=== PATIENT | male | born 1950 | race Caucasian/White ===

== ENCOUNTER 2020-10-29 08:45 | Outpatient (CLI) | payer MEDICARE, MEDICAID | END 2020-10-29 08:46 | disposition home or self-care (01) | LOC: CSHWCC 08:45 | PROVIDERS: ATTEND Nurse Practitioner Family | DX: S51.802D Unspecified open wound of left forearm, subsequent encounter (principal); E11.621 Type 2 diabetes mellitus with foot ulcer; L97.429 Non-pressure chronic ulcer of left heel and midfoot with unspecified severity; L97.519 Non-pressure chronic ulcer of other part of right foot with unspecified severity; R60.0 Localized edema; E11.40 Type 2 diabetes mellitus with diabetic neuropathy, unspecified; E11.65 Type 2 diabetes mellitus with hyperglycemia; I10 Essential (primary) hypertension; I87.2 Venous insufficiency (chronic) (peripheral); J44.9 Chronic obstructive pulmonary disease, unspecified; L20.89 Other atopic dermatitis | CPT/HCPCS: 11042; 99203; G0463 ==

== ENCOUNTER 2020-11-12 09:34 | Outpatient (CLI) | payer MEDICARE, MEDICAID | END 2020-11-12 09:35 | disposition home or self-care (01) | LOC: CSHWCC 09:34 | PROVIDERS: ATTEND Nurse Practitioner Family | DX: I87.2 Venous insufficiency (chronic) (peripheral) (principal); E11.621 Type 2 diabetes mellitus with foot ulcer; L97.429 Non-pressure chronic ulcer of left heel and midfoot with unspecified severity; L97.519 Non-pressure chronic ulcer of other part of right foot with unspecified severity; S81.802D Unspecified open wound, left lower leg, subsequent encounter; R60.0 Localized edema; E11.40 Type 2 diabetes mellitus with diabetic neuropathy, unspecified; E11.65 Type 2 diabetes mellitus with hyperglycemia; I10 Essential (primary) hypertension; J44.9 Chronic obstructive pulmonary disease, unspecified; L20.89 Other atopic dermatitis | CPT/HCPCS: 99213; G0463 ==

== ENCOUNTER 2021-03-04 10:01 | Outpatient (CLI) | payer MEDICARE, MEDICAID | END 2021-03-04 10:02 | disposition home or self-care (01) | LOC: CSHWCC 10:01 | PROVIDERS: ATTEND Nurse Practitioner Family | DX: E11.621 Type 2 diabetes mellitus with foot ulcer (principal); L97.424 Non-pressure chronic ulcer of left heel and midfoot with necrosis of bone; R60.0 Localized edema; E11.40 Type 2 diabetes mellitus with diabetic neuropathy, unspecified; E11.65 Type 2 diabetes mellitus with hyperglycemia; I10 Essential (primary) hypertension; I87.2 Venous insufficiency (chronic) (peripheral); J44.9 Chronic obstructive pulmonary disease, unspecified; L20.89 Other atopic dermatitis; M79.672 Pain in left foot; M86.9 Osteomyelitis, unspecified | CPT/HCPCS: 17250; 99213; G0463 ==

== ENCOUNTER 2021-04-30 08:34 | Outpatient (CLI) | payer MEDICARE, MEDICAID | END 2021-04-30 08:35 | disposition home or self-care (01) | LOC: CSHWCC 08:34 | PROVIDERS: ATTEND Nurse Practitioner Family | DX: E11.621 Type 2 diabetes mellitus with foot ulcer (principal); L97.512 Non-pressure chronic ulcer of other part of right foot with fat layer exposed; E11.40 Type 2 diabetes mellitus with diabetic neuropathy, unspecified; E11.65 Type 2 diabetes mellitus with hyperglycemia; I10 Essential (primary) hypertension; I87.2 Venous insufficiency (chronic) (peripheral); J44.9 Chronic obstructive pulmonary disease, unspecified; L20.89 Other atopic dermatitis; M79.672 Pain in left foot; M86.9 Osteomyelitis, unspecified; R60.0 Localized edema; S81.802D Unspecified open wound, left lower leg, subsequent encounter | CPT/HCPCS: 11042; 97139; G0463; 99213 ==

== ENCOUNTER 2021-05-21 08:35 | Outpatient (CLI) | payer MEDICARE, MEDICAID | END 2021-05-21 08:36 | disposition home or self-care (01) | LOC: CSHWCC 08:35 | PROVIDERS: ATTEND Nurse Practitioner Family | DX: I87.2 Venous insufficiency (chronic) (peripheral) (principal); E11.621 Type 2 diabetes mellitus with foot ulcer; L97.512 Non-pressure chronic ulcer of other part of right foot with fat layer exposed; E11.40 Type 2 diabetes mellitus with diabetic neuropathy, unspecified; E11.65 Type 2 diabetes mellitus with hyperglycemia; E11.69 Type 2 diabetes mellitus with other specified complication; M86.9 Osteomyelitis, unspecified; J44.9 Chronic obstructive pulmonary disease, unspecified; R60.0 Localized edema; M79.672 Pain in left foot; L20.89 Other atopic dermatitis; I10 Essential (primary) hypertension | CPT/HCPCS: 11042; 97139; G0463; 99213 ==

== ENCOUNTER 2021-06-11 08:05 | Outpatient (CLI) | payer MEDICARE, MEDICAID | END 2021-06-11 08:06 | disposition home or self-care (01) | LOC: CSHWCC 08:05 | PROVIDERS: ATTEND Nurse Practitioner Family | DX: E11.621 Type 2 diabetes mellitus with foot ulcer (principal); E11.40 Type 2 diabetes mellitus with diabetic neuropathy, unspecified; E11.65 Type 2 diabetes mellitus with hyperglycemia; L97.512 Non-pressure chronic ulcer of other part of right foot with fat layer exposed; I10 Essential (primary) hypertension; I87.2 Venous insufficiency (chronic) (peripheral); J44.9 Chronic obstructive pulmonary disease, unspecified; L20.89 Other atopic dermatitis; M79.672 Pain in left foot; M86.9 Osteomyelitis, unspecified; R60.0 Localized edema ==

== ENCOUNTER 2021-10-04 08:04 | Outpatient (CLI) | payer OTHER, MEDICAID | END 2021-10-04 08:05 | disposition home or self-care (01) | LOC: CSHWCC 08:04 | PROVIDERS: ATTEND Nurse Practitioner Family | DX: E11.621 Type 2 diabetes mellitus with foot ulcer (principal); L97.524 Non-pressure chronic ulcer of other part of left foot with necrosis of bone; L97.519 Non-pressure chronic ulcer of other part of right foot with unspecified severity; R60.0 Localized edema | CPT/HCPCS: 29581; 97605 ==

== ENCOUNTER 2021-10-11 08:01 | Outpatient (CLI) | payer OTHER, MEDICAID | END 2021-10-11 08:02 | disposition home or self-care (01) | LOC: CSHWCC 08:01 | PROVIDERS: ATTEND Nurse Practitioner Family | DX: E11.621 Type 2 diabetes mellitus with foot ulcer (principal); L97.524 Non-pressure chronic ulcer of other part of left foot with necrosis of bone; L97.519 Non-pressure chronic ulcer of other part of right foot with unspecified severity; R60.0 Localized edema | CPT/HCPCS: 11044; 29581; 97605 ==

== ENCOUNTER 2021-10-14 08:26 | Outpatient (CLI) | payer OTHER, MEDICAID | END 2021-10-14 08:27 | disposition home or self-care (01) | LOC: CSHWCC 08:26 | PROVIDERS: ATTEND Nurse Practitioner Family | DX: E11.621 Type 2 diabetes mellitus with foot ulcer (principal); E11.622 Type 2 diabetes mellitus with other skin ulcer; L97.512 Non-pressure chronic ulcer of other part of right foot with fat layer exposed; L97.524 Non-pressure chronic ulcer of other part of left foot with necrosis of bone; R60.0 Localized edema ==

== ENCOUNTER 2021-10-24 13:56 | Outpatient (CLI) | payer OTHER, MEDICAID | END 2021-10-24 13:57 | disposition home or self-care (01) | LOC: CSHWCC 13:56 | PROVIDERS: ATTEND Nurse Practitioner Family | DX: E11.621 Type 2 diabetes mellitus with foot ulcer (principal); L97.524 Non-pressure chronic ulcer of other part of left foot with necrosis of bone; L97.519 Non-pressure chronic ulcer of other part of right foot with unspecified severity; R60.0 Localized edema | CPT/HCPCS: 97139; G0463; 99213 ==

== ENCOUNTER 2021-10-31 08:19 | Outpatient (CLI) | payer MEDICARE, MEDICAID | END 2021-10-31 08:20 | disposition home or self-care (01) | LOC: CSHWCC 08:19 | PROVIDERS: ATTEND Nurse Practitioner Family | DX: E11.621 Type 2 diabetes mellitus with foot ulcer (principal); L97.524 Non-pressure chronic ulcer of other part of left foot with necrosis of bone; L97.519 Non-pressure chronic ulcer of other part of right foot with unspecified severity; R60.0 Localized edema | CPT/HCPCS: 97139; G0463; 99213 ==

== ENCOUNTER 2021-11-07 08:18 | Outpatient (CLI) | payer MEDICARE, MEDICAID | END 2021-11-07 08:19 | disposition home or self-care (01) | LOC: CSHWCC 08:18 | PROVIDERS: ATTEND Nurse Practitioner Family | DX: E11.621 Type 2 diabetes mellitus with foot ulcer (principal); L97.524 Non-pressure chronic ulcer of other part of left foot with necrosis of bone; R60.0 Localized edema ==

== ENCOUNTER 2021-11-14 08:28 | Outpatient (CLI) | payer OTHER, MEDICAID | END 2021-11-14 08:29 | disposition home or self-care (01) | LOC: CSHWCC 08:28 | PROVIDERS: ATTEND Nurse Practitioner Family | DX: E11.621 Type 2 diabetes mellitus with foot ulcer (principal); L97.524 Non-pressure chronic ulcer of other part of left foot with necrosis of bone; L97.511 Non-pressure chronic ulcer of other part of right foot limited to breakdown of skin; R60.0 Localized edema | CPT/HCPCS: 99214; G0463 ==

== ENCOUNTER 2021-11-21 08:37 | Outpatient (CLI) | payer OTHER, MEDICAID | END 2021-11-21 08:38 | disposition home or self-care (01) | LOC: CSHWCC 08:37 | PROVIDERS: ATTEND Nurse Practitioner Family | DX: E11.621 Type 2 diabetes mellitus with foot ulcer (principal); L97.524 Non-pressure chronic ulcer of other part of left foot with necrosis of bone; R60.0 Localized edema ==

== ENCOUNTER 2021-11-28 08:12 | Outpatient (CLI) | payer OTHER, MEDICAID | END 2021-11-28 08:13 | disposition home or self-care (01) | LOC: CSHWCC 08:12 | PROVIDERS: ATTEND Nurse Practitioner Family | DX: E11.621 Type 2 diabetes mellitus with foot ulcer (principal); L97.524 Non-pressure chronic ulcer of other part of left foot with necrosis of bone; R60.0 Localized edema | CPT/HCPCS: 99213; G0463 ==

== ENCOUNTER 2021-12-05 08:03 | Outpatient (CLI) | payer OTHER, MEDICAID | END 2021-12-05 08:04 | disposition home or self-care (01) | LOC: CSHWCC 08:03 | PROVIDERS: ATTEND Nurse Practitioner Family | DX: E11.621 Type 2 diabetes mellitus with foot ulcer (principal); L97.524 Non-pressure chronic ulcer of other part of left foot with necrosis of bone; R60.0 Localized edema ==

== ENCOUNTER 2021-12-12 08:01 | Outpatient (CLI) | payer OTHER, MEDICAID | END 2021-12-12 08:02 | disposition home or self-care (01) | LOC: CSHWCC 08:01 | PROVIDERS: ATTEND Nurse Practitioner Family | DX: E11.621 Type 2 diabetes mellitus with foot ulcer (principal); L97.524 Non-pressure chronic ulcer of other part of left foot with necrosis of bone; R60.0 Localized edema | CPT/HCPCS: 99213; G0463 ==

== ENCOUNTER 2021-12-19 08:01 | Outpatient (CLI) | payer OTHER, MEDICAID | END 2021-12-19 08:02 | disposition home or self-care (01) | LOC: CSHWCC 08:01 | PROVIDERS: ATTEND Nurse Practitioner Family | DX: E11.621 Type 2 diabetes mellitus with foot ulcer (principal); L97.524 Non-pressure chronic ulcer of other part of left foot with necrosis of bone; R60.0 Localized edema | CPT/HCPCS: 97139; G0463; 99213 ==

== ENCOUNTER 2022-01-02 08:05 | Outpatient (CLI) | payer MEDICARE, MEDICAID | END 2022-01-02 08:06 | disposition home or self-care (01) | LOC: CSHWCC 08:05 | PROVIDERS: ATTEND Nurse Practitioner Family | DX: E11.621 Type 2 diabetes mellitus with foot ulcer (principal); L97.524 Non-pressure chronic ulcer of other part of left foot with necrosis of bone; R60.0 Localized edema | CPT/HCPCS: 11042 ==

== ENCOUNTER 2022-01-16 08:01 | Outpatient (CLI) | payer OTHER, MEDICAID | END 2022-01-16 08:02 | disposition home or self-care (01) | LOC: CSHWCC 08:01 | PROVIDERS: ATTEND Nurse Practitioner Family | DX: E11.621 Type 2 diabetes mellitus with foot ulcer (principal); L97.422 Non-pressure chronic ulcer of left heel and midfoot with fat layer exposed; R60.0 Localized edema ==

== ENCOUNTER 2022-01-23 08:07 | Outpatient (CLI) | payer MEDICARE, MEDICAID | END 2022-01-23 08:08 | disposition home or self-care (01) | LOC: CSHWCC 08:07 | PROVIDERS: ATTEND Nurse Practitioner Family | DX: E11.621 Type 2 diabetes mellitus with foot ulcer (principal); L97.422 Non-pressure chronic ulcer of left heel and midfoot with fat layer exposed; R60.0 Localized edema ==

== ENCOUNTER 2022-01-30 08:05 | Outpatient (CLI) | payer OTHER, MEDICAID | END 2022-01-30 08:06 | disposition home or self-care (01) | LOC: CSHWCC 08:05 → MERGE 08:05 → CSHWCC 08:06 | PROVIDERS: ATTEND Nurse Practitioner Family | DX: E11.621 Type 2 diabetes mellitus with foot ulcer (principal); L97.422 Non-pressure chronic ulcer of left heel and midfoot with fat layer exposed; R60.0 Localized edema | CPT/HCPCS: 87070; 87077; 87186; 87205; 97139; G0463; 99213 ==

== ENCOUNTER 2022-02-05 10:46 | Outpatient (CLI) | payer OTHER, MEDICAID | END 2022-02-05 10:47 | disposition home or self-care (01) | LOC: CSHWCC 10:46 | PROVIDERS: ATTEND Nurse Practitioner Family | DX: E11.621 Type 2 diabetes mellitus with foot ulcer (principal); L97.422 Non-pressure chronic ulcer of left heel and midfoot with fat layer exposed; R60.0 Localized edema ==

== ENCOUNTER 2022-02-06 09:39 | Outpatient (CLI) | payer OTHER, MEDICAID | END 2022-02-06 09:40 | disposition home or self-care (01) | LOC: CSHWCC 09:39 | PROVIDERS: ATTEND Nurse Practitioner Family | DX: E11.621 Type 2 diabetes mellitus with foot ulcer (principal); L97.422 Non-pressure chronic ulcer of left heel and midfoot with fat layer exposed; R60.0 Localized edema | CPT/HCPCS: 29581 ==

== ENCOUNTER 2022-02-11 08:05 | Outpatient (CLI) | payer MEDICARE, MEDICAID | END 2022-02-11 08:06 | disposition home or self-care (01) | LOC: CSHWCC 08:05 | PROVIDERS: ATTEND Nurse Practitioner Family | DX: E11.621 Type 2 diabetes mellitus with foot ulcer (principal); L97.422 Non-pressure chronic ulcer of left heel and midfoot with fat layer exposed; R60.0 Localized edema | CPT/HCPCS: 99213; G0463 ==

== ENCOUNTER 2022-02-14 08:05 | Outpatient (CLI) | payer MEDICARE, MEDICAID | END 2022-02-14 08:06 | disposition home or self-care (01) | LOC: CSHWCC 08:05 | PROVIDERS: ATTEND Nurse Practitioner Family | DX: E11.621 Type 2 diabetes mellitus with foot ulcer (principal); L97.422 Non-pressure chronic ulcer of left heel and midfoot with fat layer exposed; R60.0 Localized edema | CPT/HCPCS: 99213; G0463 ==

== ENCOUNTER 2022-04-15 09:21 | Outpatient (CLI) | payer OTHER | END 2022-04-15 09:22 | disposition home or self-care (01) | LOC: CSHWCC 09:21 | PROVIDERS: ATTEND Preventive Medicine Undersea and Hyperbaric Medicine | DX: E11.621 Type 2 diabetes mellitus with foot ulcer (principal); L97.422 Non-pressure chronic ulcer of left heel and midfoot with fat layer exposed; R60.0 Localized edema | CPT/HCPCS: 97139; G0463; 99213 ==

== ENCOUNTER 2022-04-23 08:52 | Outpatient (CLI) | payer OTHER | END 2022-04-23 08:53 | disposition home or self-care (01) | LOC: CSHWCC 08:52 | PROVIDERS: ATTEND Preventive Medicine Undersea and Hyperbaric Medicine | DX: E11.621 Type 2 diabetes mellitus with foot ulcer (principal); L97.422 Non-pressure chronic ulcer of left heel and midfoot with fat layer exposed; R60.0 Localized edema | CPT/HCPCS: 97139; G0463; 99213 ==

== ENCOUNTER 2022-05-01 09:01 | Outpatient (CLI) | payer OTHER | END 2022-05-01 09:02 | disposition home or self-care (01) | LOC: CSHWCC 09:01 | PROVIDERS: ATTEND Nurse Practitioner Family | DX: E11.622 Type 2 diabetes mellitus with other skin ulcer (principal); L97.422 Non-pressure chronic ulcer of left heel and midfoot with fat layer exposed; R60.0 Localized edema ==

== ENCOUNTER 2022-05-08 10:45 | Outpatient (CLI) | payer OTHER | END 2022-05-08 10:46 | disposition home or self-care (01) | LOC: CSHWCC 10:45 | PROVIDERS: ATTEND Nurse Practitioner Family | DX: E11.621 Type 2 diabetes mellitus with foot ulcer (principal); L97.422 Non-pressure chronic ulcer of left heel and midfoot with fat layer exposed; R60.0 Localized edema | CPT/HCPCS: 97139; G0463; 99213 ==

== ENCOUNTER 2022-05-15 13:20 | Outpatient (CLI) | payer OTHER | END 2022-05-15 13:21 | disposition home or self-care (01) | LOC: CSHWCC 13:20 | PROVIDERS: ATTEND Nurse Practitioner Family | DX: S51.802D Unspecified open wound of left forearm, subsequent encounter (principal); E11.621 Type 2 diabetes mellitus with foot ulcer; L97.422 Non-pressure chronic ulcer of left heel and midfoot with fat layer exposed; R60.0 Localized edema ==

== ENCOUNTER 2022-05-22 12:47 | Outpatient (CLI) | payer OTHER | END 2022-05-22 12:48 | disposition home or self-care (01) | LOC: CSHWCC 12:47 | PROVIDERS: ATTEND Nurse Practitioner Family | DX: E11.621 Type 2 diabetes mellitus with foot ulcer (principal); L97.422 Non-pressure chronic ulcer of left heel and midfoot with fat layer exposed; R60.0 Localized edema | CPT/HCPCS: 99213; G0463 ==

== ENCOUNTER 2022-06-05 10:26 | Outpatient (CLI) | payer OTHER | END 2022-06-05 10:27 | disposition home or self-care (01) | LOC: CSHWCC 10:26 | PROVIDERS: ATTEND Nurse Practitioner Family | DX: E11.621 Type 2 diabetes mellitus with foot ulcer (principal); L97.422 Non-pressure chronic ulcer of left heel and midfoot with fat layer exposed; R60.0 Localized edema | CPT/HCPCS: 87070; 87077; 87205 ==

== ENCOUNTER 2022-07-21 12:50 | Outpatient (CLI) | payer OTHER, MEDICAID | END 2022-07-21 12:51 | disposition home or self-care (01) | LOC: CSHWCC 12:50 | PROVIDERS: ATTEND Nurse Practitioner Family | DX: E11.621 Type 2 diabetes mellitus with foot ulcer (principal); L97.422 Non-pressure chronic ulcer of left heel and midfoot with fat layer exposed; L97.514 Non-pressure chronic ulcer of other part of right foot with necrosis of bone; R60.0 Localized edema | CPT/HCPCS: 99214; G0463 ==

== ENCOUNTER 2022-10-29 09:03 | Outpatient (CLI) | payer OTHER | END 2022-10-29 09:04 | disposition home or self-care (01) | LOC: CSHWCC 09:03 | PROVIDERS: ATTEND Nurse Practitioner Family | DX: R60.0 Localized edema (principal); E11.621 Type 2 diabetes mellitus with foot ulcer; L97.511 Non-pressure chronic ulcer of other part of right foot limited to breakdown of skin; L97.422 Non-pressure chronic ulcer of left heel and midfoot with fat layer exposed; L97.512 Non-pressure chronic ulcer of other part of right foot with fat layer exposed | CPT/HCPCS: 36416; 99214; G0463 ==

== ENCOUNTER 2022-10-29 10:34 | Emergency (ER) | payer OTHER ==
[2022-10-29 11:07] LABS: #Basophils 0.1 10x3/uL (0.0-0.2); #Eosinphils 0.3 10x3/uL (0.0-0.5); #Monocytes 0.6 10x3/uL (0.0-1.1); #Neutrophils 5.3 10x3/uL (1.5-8.4); %Basophils 1.1 % (0.0-2.0); %Eosinophils 3.4 % (0.0-6.0); %Lymphocytes 15.2 % (18.0-47.0); %Monocytes 8.6 % (0.0-10.0); %Neutrophils 71.4 % (40.0-75.0); Hemoglobin 11.9 g/dL (13.5-17.5); Mean Corpuscular HGB CONC 31.6 g/dL (32.0-36.0); Mean Corpuscular Hemoglobin 25.4 pg (27.0-33.0); Mean Corpuscular Volume 80.4 fl (81.2-95.1); Platelet Count 368 10x3/uL (150-450); RBC Distribution Width 14.6 % (11.5-14.5); Red Blood Cell (RBC) Count 4.69 10x6/uL (4.32-5.72); White Blood Cell (WBC) Count 7.4 10x3/uL (3.5-10.5)
[2022-10-29] MEDS ORDERED: Iopamidol 370 76% 100 ML VIAL ONE (11:22)
[2022-10-29 11:23] LABS: ALT (SGPT) 16 U/L (8-55); AST (SGOT) 19 U/L (5-34); Alkaline Phosphatase 122 U/L (40-110); Anion Gap 14 mmol/L (10-20); BUN (Urea Nitrogen) 22 mg/dL (8.4-25.7); Bilirubin, Total 0.7 mg/dL (0.2-1.2); Calc. Creatinine Clearance 0 mL/min (70-130); Calcium 9.3 mg/dL (7.8-10.44); Carbon Dioxide 25 mmol/L (23-31); Chloride 103 mmol/L (98-107); Estimated GFR 37; Globulin 2.8 g/dL (2.4-3.5); Glucose 124 mg/dL (83-110); Potassium 4.7 mmol/L (3.5-5.1); Protein, Total 6.8 g/dL (5.8-8.1); Sodium 137 mmol/L (136-145)
[2022-10-29 11:43] LABS: CKMB 3.7 ng/mL (0-6.6)
== END 2022-10-29 12:43 | disposition home or self-care (01) ==
LOC: CSHERS 10:34
DX: R07.9 Chest pain, unspecified (principal); J90 Pleural effusion, not elsewhere classified; I11.0 Hypertensive heart disease with heart failure; I50.9 Heart failure, unspecified; E11.9 Type 2 diabetes mellitus without complications; J44.9 Chronic obstructive pulmonary disease, unspecified; F17.210 Nicotine dependence, cigarettes, uncomplicated
CPT/HCPCS: 36415; 36416; 71045; 71275; 80053; 82553; 83880; 84484; 85025; 93005; Q9967

== ENCOUNTER 2023-05-04 10:00 | Inpatient (IN) | payer OTHER, MEDICAID ==
[2023-05-04 15:24] VITALS: BMI 24.3
[2023-05-07] MEDS ORDERED: Midazolam HCl 2 mg/2 ml Vial ONE (10:25)
[2023-05-07] MEDS ORDERED: Ropivacaine 0.5% HCl/PF (150 MG/30 ML VIAL) ONE (10:25)
[2023-05-07] MEDS ORDERED: fentaNYL 50 mcg/mL 1 mL Vial ONE ×3 (10:26→12:43)
[2023-05-07] MEDS ORDERED: Lidocaine 2% MPF 10 ML AMP (For Epidural Use) ONE (10:26)
[2023-05-07] MEDS ORDERED: Clindamycin/D5W 600 mg/50 ml Premix Bag ONE (10:28)
[2023-05-07] MEDS ORDERED: Lidocaine 1% MPF 2 ML VIAL ONE (10:30)
[2023-05-07] MEDS ORDERED: KETAMINE 100 MG/ML (5ML VIAL) ONE (11:13)
[2023-05-07] MEDS ORDERED: SUGAMMADEX SODIUM 200 MG/2 ML VIAL ONE (11:47)
[2023-05-07] MEDS ORDERED: Glycopyrrolate 0.2 MG/ML 5 ML SYRINGE ONE (11:59)
[2023-05-07] MEDS ORDERED: PHENYLEPHRINE-NS 100 MCG/ML 10 ML SYRINGE ONE (11:59)
[2023-05-07] MEDS ORDERED: Ondansetron PF 4 MG/2 ML Vial ONE (12:00)
[2023-05-07] MEDS ORDERED: Rocuronium Bromide 10 MG/ML (10ML VIAL) ONE (12:00)
[2023-05-07] MEDS ORDERED: Ondansetron PF 4 MG/2 ML Vial IVP PRN (12:44)
[2023-05-07] MEDS ORDERED: Promethazine HCl 25 MG/ML VIAL IM PRN (12:44)
[2023-05-07] MEDS ORDERED: Ipratropium/Albuterol 3 ML NEB NEB PRN (12:44)
[2023-05-07] MEDS ORDERED: hydrALAZINE 20 MG/ML VIAL SLOW IVP PRN (12:44)
[2023-05-07] MEDS ORDERED: HYDROmorphone 0.5 MG/0.5 ML SYRINGE ONE ×3 (12:46→14:23)
[2023-05-07] MEDS ORDERED: Morphine 4 MG/ML VIAL ONE (13:42)
[2023-05-07] MEDS: Lorazepam 0.5 MG TAB PO PRN (15:51)
[2023-05-07] MEDS: Morphine 2 MG/ML VIAL SLOW IVP PRN (15:51)
[2023-05-07] MEDS ORDERED: FLU VACC QS2023(65UP)/MF59C/PF 60 MCG/0.5 ML SYRINGE IM ONE (16:30)
[2023-05-07] MEDS: DEXTROSE ISO IVPB SCH (17:46)
[2023-05-07] MEDS: Ketorolac Tromethamine 30 MG/ML VIAL IVP SCH (17:46)
[2023-05-07] MEDS: CEFOXITIN SODIUM IVPB SCH (17:46)
[2023-05-07] MEDS: metFORMIN 500 MG TAB PO SCH (17:46)
[2023-05-07] MEDS: Torsemide 20 MG TAB PO SCH (17:48)
[2023-05-07] MEDS: Budesonide 0.25 MG/2 ML NEB INH SCH (20:08)
[2023-05-07] MEDS: busPIRone HCl 15 MG TAB PO SCH (22:13)
[2023-05-08] MEDS: CEFOXITIN SODIUM IVPB SCH ×3 (03:00→19:30)
[2023-05-08] MEDS: DEXTROSE ISO IVPB SCH ×3 (03:00→19:30)
[2023-05-08] MEDS: Ketorolac Tromethamine 30 MG/ML VIAL IVP SCH ×4 (05:19→19:29)
[2023-05-08] MEDS: Morphine 4 MG/ML VIAL SLOW IVP PRN ×2 (05:21→09:52)
[2023-05-08] MEDS: Torsemide 20 MG TAB PO SCH ×2 (08:35→13:55)
[2023-05-08] MEDS: Digoxin 0.125 MG TAB PO SCH (08:36)
[2023-05-08] MEDS: busPIRone HCl 15 MG TAB PO SCH ×2 (08:36→21:39)
[2023-05-08] MEDS: metFORMIN 500 MG TAB PO SCH ×2 (08:36→17:29)
[2023-05-08] MEDS: Lorazepam 0.5 MG TAB PO PRN ×3 (08:42→21:50)
[2023-05-08] MEDS: HYDROcodone/Acetaminophen 10/325 mg Tablet PO PRN ×3 (08:50→19:30)
[2023-05-08] MEDS: Budesonide 0.25 MG/2 ML NEB INH SCH ×2 (10:35→20:40)
[2023-05-08] MEDS: Morphine 2 MG/ML VIAL SLOW IVP PRN ×2 (12:17→12:20)
[2023-05-09] MEDS: Ketorolac Tromethamine 30 MG/ML VIAL IVP SCH ×4 (00:37→17:49)
[2023-05-09] MEDS: HYDROcodone/Acetaminophen 10/325 mg Tablet PO PRN ×4 (01:29→21:22)
[2023-05-09] MEDS: DEXTROSE ISO IVPB SCH ×3 (01:31→17:51)
[2023-05-09] MEDS: CEFOXITIN SODIUM IVPB SCH ×3 (01:31→17:51)
[2023-05-09] MEDS: Digoxin 0.125 MG TAB PO SCH (08:50)
[2023-05-09] MEDS: busPIRone HCl 15 MG TAB PO SCH ×2 (08:52→21:23)
[2023-05-09] MEDS: metFORMIN 500 MG TAB PO SCH ×2 (08:52→17:50)
[2023-05-09] MEDS: Morphine 4 MG/ML VIAL SLOW IVP PRN ×2 (08:53→17:50)
[2023-05-09] MEDS: Lorazepam 0.5 MG TAB PO PRN ×3 (08:54→21:23)
[2023-05-09] MEDS: Torsemide 20 MG TAB PO SCH ×2 (08:54→14:16)
[2023-05-09] MEDS: Budesonide 0.25 MG/2 ML NEB INH SCH ×2 (10:10→19:33)
[2023-05-10] MEDS: Ketorolac Tromethamine 30 MG/ML VIAL IVP SCH ×2 (01:00→06:26)
[2023-05-10] MEDS: Lorazepam 0.5 MG TAB PO PRN ×2 (03:53→08:42)
[2023-05-10] MEDS: CEFOXITIN SODIUM IVPB SCH ×2 (03:53→11:57)
[2023-05-10] MEDS: DEXTROSE ISO IVPB SCH ×2 (03:53→11:57)
[2023-05-10] MEDS: HYDROcodone/Acetaminophen 10/325 mg Tablet PO PRN ×2 (03:53→08:42)
[2023-05-10] MEDS: metFORMIN 500 MG TAB PO SCH (08:42)
[2023-05-10] MEDS: Digoxin 0.125 MG TAB PO SCH (08:42)
[2023-05-10] MEDS: busPIRone HCl 15 MG TAB PO SCH (08:42)
[2023-05-10] MEDS: Torsemide 20 MG TAB PO SCH (08:43)
[2023-05-10] MEDS: Budesonide 0.25 MG/2 ML NEB INH SCH (10:10)
[2023-05-10 10:45] VITALS: BP 118/56; TEMP 98
== END 2023-05-10 11:56 | DRG 240 ==
LOC: CSHTELE 05-07 09:11
PROVIDERS: ADMIT Surgery; ATTEND Surgery
PROC: 0Y6J0Z1 Detachment at Left Lower Leg, High, Open Approach (ICD-10-PCS; principal; 2023-05-07)
DX: E11.52 Type 2 diabetes mellitus with diabetic peripheral angiopathy with gangrene (principal); I13.0 Hypertensive heart and chronic kidney disease with heart failure and stage 1 through stage 4 chronic kidney disease, or unspecified chronic kidney disease; M86.8X7 Other osteomyelitis, ankle and foot; I42.9 Cardiomyopathy, unspecified; L97.429 Non-pressure chronic ulcer of left heel and midfoot with unspecified severity; E11.69 Type 2 diabetes mellitus with other specified complication; E11.51 Type 2 diabetes mellitus with diabetic peripheral angiopathy without gangrene; E78.5 Hyperlipidemia, unspecified; I25.10 Atherosclerotic heart disease of native coronary artery without angina pectoris; I50.9 Heart failure, unspecified; J44.9 Chronic obstructive pulmonary disease, unspecified; F17.210 Nicotine dependence, cigarettes, uncomplicated; I48.91 Unspecified atrial fibrillation; E11.22 Type 2 diabetes mellitus with diabetic chronic kidney disease; N18.30 Chronic kidney disease, stage 3 unspecified; E66.01 Morbid (severe) obesity due to excess calories; Z68.24 Body mass index [BMI] 24.0-24.9, adult; E11.621 Type 2 diabetes mellitus with foot ulcer
CPT/HCPCS: 36416; 88307; 88311; 94640; 94760; J0694; J1170; J1650; J1885; J2250; J2270; J2272; J2405; J2795; J3010; J3490; J7626

== ENCOUNTER 2023-05-04 15:06 | Outpatient (CLI) | payer OTHER, MEDICAID ==
[2023-05-04 15:35] LABS: Hematocrit 29.7 % (38.8-50.0); Hemoglobin 9.6 g/dL (13.5-17.5); Mean Corpuscular HGB CONC 32.3 g/dL (32.0-36.0); Mean Corpuscular Hemoglobin 27.6 pg (27.0-33.0); Mean Corpuscular Volume 85.3 fl (81.2-95.1); Platelet Count 384 10x3/uL (150-450); RBC Distribution Width 17.2 % (11.5-14.5); Red Blood Cell (RBC) Count 3.48 10x6/uL (4.32-5.72); White Blood Cell (WBC) Count 7.8 10x3/uL (3.5-10.5)
[2023-05-04 15:53] LABS: Anion Gap 17 mmol/L (10-20); BUN (Urea Nitrogen) 43 mg/dL (8.4-25.7); Calc. Creatinine Clearance 0 mL/min (70-130); Calcium 9.2 mg/dL (7.8-10.44); Carbon Dioxide 28 mmol/L (23-31); Chloride 99 mmol/L (98-107); Estimated GFR 65; Glucose 130 mg/dL (83-110); Potassium 4.6 mmol/L (3.5-5.1); Sodium 139 mmol/L (136-145)
== END 2023-05-04 15:07 | disposition home or self-care (01) ==
LOC: CSHLAB 15:06
PROVIDERS: ATTEND Surgery
DX: Z01.812 Encounter for preprocedural laboratory examination (principal); M86.9 Osteomyelitis, unspecified
CPT/HCPCS: 80048; 85027

== ENCOUNTER 2023-06-22 13:27 | Outpatient (CLI) | payer OTHER, MEDICAID ==
[2023-06-22 14:41] LABS: Anion Gap 15 mmol/L (10-20); BUN (Urea Nitrogen) 31 mg/dL (8.4-25.7); Calc. Creatinine Clearance 0 mL/min (70-130); Calcium 9.3 mg/dL (7.8-10.44); Carbon Dioxide 30 mmol/L (23-31); Chloride 99 mmol/L (98-107); Estimated GFR 55; Glucose 185 mg/dL (83-110); Potassium 4.6 mmol/L (3.5-5.1); Sodium 139 mmol/L (136-145)
[2023-06-22 15:02] LABS: Hemoglobin 8.2 g/dL (13.5-17.5); Mean Corpuscular HGB CONC 31.5 g/dL (32.0-36.0); Mean Corpuscular Hemoglobin 26.3 pg (27.0-33.0); Mean Corpuscular Volume 83.3 fl (81.2-95.1); Mean Platelet Volume 11.1 fl (7.4-10.4); Platelet Count 387 10x3/uL (150-450); RBC Distribution Width 16.3 % (11.5-14.5); Red Blood Cell (RBC) Count 3.12 10x6/uL (4.32-5.72)
== END 2023-06-22 13:28 | disposition home or self-care (01) ==
LOC: CSHLAB 13:27
PROVIDERS: ATTEND Surgery
DX: Z01.818 Encounter for other preprocedural examination (principal); T87.81 Dehiscence of amputation stump
CPT/HCPCS: 80048; 85027; 93005; 93010

== ENCOUNTER 2023-06-23 13:30 | Inpatient (IN) | payer OTHER, MEDICAID, MEDICARE ==
[2023-06-25] MEDS ORDERED: KETAMINE 100 MG/ML (5ML VIAL) ONE (11:38)
[2023-06-25] MEDS ORDERED: Etomidate 40 MG (20 mL) VIAL ONE (11:38)
[2023-06-25] MEDS ORDERED: fentaNYL 50 mcg/mL 1 mL Vial ONE ×4 (11:41→15:21)
[2023-06-25] MEDS ORDERED: Clindamycin/D5W 600 mg/50 ml Premix Bag ONE (11:51)
[2023-06-25] MEDS ORDERED: Phenylephrine 10 MG/ML VIAL ONE (11:52)
[2023-06-25] MEDS ORDERED: Dexamethasone 4 mg/ml Vial ONE (13:19)
[2023-06-25] MEDS ORDERED: Ondansetron PF 4 MG/2 ML Vial ONE (13:19)
[2023-06-25] MEDS ORDERED: Ondansetron ODT 4 MG TAB PO PRN (14:02)
[2023-06-25] MEDS ORDERED: Dextrose 50% Abboject 50 ML SYRINGE SLOW IVP PRN (14:02)
[2023-06-25] MEDS ORDERED: Ipratropium/Albuterol 3 ML NEB NEB PRN ×2 (14:02→18:35)
[2023-06-25] MEDS ORDERED: Dextrose 5% in Water 1,000 ML IV PRN (14:02)
[2023-06-25] MEDS ORDERED: Glucagon 1 MG/ML KIT IM PRN (14:02)
[2023-06-25] MEDS ORDERED: HYDROmorphone 0.5 MG/0.5 ML SYRINGE ONE ×2 (14:10→14:25)
[2023-06-25] MEDS ORDERED: Midazolam HCl 2 mg/2 ml Vial ONE ×2 (14:51→16:12)
[2023-06-25] MEDS: metFORMIN 500 MG TAB PO SCH (17:44)
[2023-06-25] MEDS: Lorazepam 0.5 MG TAB PO PRN (17:44)
[2023-06-25] MEDS: Morphine 4 MG/ML VIAL SLOW IVP PRN (17:50)
[2023-06-25] MEDS: Clindamycin/D5W 600 MG in Premix 1 BAG IVPB SCH (20:36)
[2023-06-25] MEDS: Enoxaparin 30 MG (0.3 mL) SYRINGE SC SCH (20:36)
[2023-06-25] MEDS: Gabapentin 300 MG CAP PO SCH (20:36)
[2023-06-25] MEDS: traMADol HCl 50 MG TAB PO SCH (20:37)
[2023-06-25] MEDS: Acetaminophen 500 MG TAB PO SCH (20:37)
[2023-06-25] MEDS: Atorvastatin Calcium 40 MG TAB PO SCH (20:38)
[2023-06-25] MEDS: busPIRone HCl 15 MG TAB PO SCH (20:38)
[2023-06-25] MEDS: Melatonin 3 MG TAB PO SCH (20:38)
[2023-06-25] MEDS: HYDROcodone/Acetaminophen 10/325 mg Tablet PO PRN (21:23)
[2023-06-25] MEDS: Lorazepam 2 MG/ML VIAL SLOW IVP PRN (22:13)
[2023-06-26 04:22] LABS: #Neutrophils 11.7 10x3/uL (1.5-8.4); %Basophils 0.3 % (0.0-2.0); %Eosinophils 0.1 % (0.0-6.0); %Lymphocytes 5.2 % (18.0-47.0); %Monocytes 7.1 % (0.0-10.0); %Neutrophils 86.9 % (40.0-75.0); Hematocrit 23.2 % (38.8-50.0); Hemoglobin 7.4 g/dL (13.5-17.5); Mean Corpuscular HGB CONC 31.9 g/dL (32.0-36.0); Mean Corpuscular Hemoglobin 26.2 pg (27.0-33.0); Mean Corpuscular Volume 82.3 fl (81.2-95.1); Mean Platelet Volume 10.6 fl (7.4-10.4); Platelet Count 430 10x3/uL (150-450); RBC Distribution Width 16.7 % (11.5-14.5); Red Blood Cell (RBC) Count 2.82 10x6/uL (4.32-5.72); White Blood Cell (WBC) Count 13.5 10x3/uL (3.5-10.5)
[2023-06-26 04:24] LABS: Anion Gap 14 mmol/L (10-20); BUN (Urea Nitrogen) 17 mg/dL (8.4-25.7); Calc. Creatinine Clearance 133 mL/min (70-130); Calcium 9.2 mg/dL (7.8-10.44); Carbon Dioxide 23 mmol/L (23-31); Chloride 104 mmol/L (98-107); Estimated GFR 86; Glucose 170 mg/dL (83-110); Potassium 5.1 mmol/L (3.5-5.1); Sodium 136 mmol/L (136-145)
[2023-06-26] MEDS: Albuterol 2.5 MG (3 mL) NEB NEB SCH (07:47)
[2023-06-26] MEDS: Torsemide 20 MG TAB PO SCH (08:10)
[2023-06-26] MEDS: Mirabegron ER 25 MG ER.TAB PO SCH (08:11)
[2023-06-26] MEDS: Aspirin 81 mg Enteric Coated Tablet PO SCH (08:11)
[2023-06-26] MEDS: Multivitamin W/ Minerals 1 TAB PO SCH (08:12)
[2023-06-26] MEDS: Digoxin 0.125 MG TAB PO SCH (08:13)
[2023-06-26] MEDS: Enoxaparin 40 MG (0.4 mL) SYRINGE SC SCH (08:13)
[2023-06-26 16:22] VITALS: BMI 25.0
[2023-06-27] MEDS ORDERED: Lorazepam 2 MG/ML VIAL SLOW IVP PRN (09:34)
[2023-06-27] MEDS: Lorazepam 2 MG/ML VIAL SLOW IVP PRN (14:15)
[2023-06-27 18:18] LABS: #Basophils 0.1 10x3/uL (0.0-0.2); #Eosinphils 0.2 10x3/uL (0.0-0.5); #Monocytes 1.4 10x3/uL (0.0-1.1); #Neutrophils 10.2 10x3/uL (1.5-8.4); %Basophils 0.5 % (0.0-2.0); %Eosinophils 1.7 % (0.0-6.0); %Lymphocytes 5.5 % (18.0-47.0); %Neutrophils 80.6 % (40.0-75.0); Hematocrit 20.3 % (38.8-50.0); Hemoglobin 6.6 g/dL (13.5-17.5); Mean Corpuscular HGB CONC 32.5 g/dL (32.0-36.0); Mean Corpuscular Hemoglobin 25.8 pg (27.0-33.0); Mean Corpuscular Volume 79.3 fl (81.2-95.1); Mean Platelet Volume 10.2 fl (7.4-10.4); Platelet Count 450 10x3/uL (150-450); RBC Distribution Width 16.9 % (11.5-14.5); Red Blood Cell (RBC) Count 2.56 10x6/uL (4.32-5.72); White Blood Cell (WBC) Count 12.7 10x3/uL (3.5-10.5)
[2023-06-27 19:55] LABS: Anion Gap 17 mmol/L (10-20); BUN (Urea Nitrogen) 16 mg/dL (8.4-25.7); Calc. Creatinine Clearance 74 mL/min (70-130); Calcium 9.2 mg/dL (7.8-10.44); Carbon Dioxide 23 mmol/L (23-31); Chloride 102 mmol/L (98-107); Estimated GFR 68; Glucose 143 mg/dL (83-110); Magnesium 1.6 mg/dL (1.6-2.6); Potassium 4.2 mmol/L (3.5-5.1); Sodium 138 mmol/L (136-145)
[2023-06-28] MEDS: HYDROcodone/Acetaminophen 10/325 mg Tablet PO PRN (04:12)
[2023-06-28 04:22] LABS: #Basophils 0.1 10x3/uL (0.0-0.2); #Eosinphils 0.4 10x3/uL (0.0-0.5); #Monocytes 1.5 10x3/uL (0.0-1.1); #Neutrophils 8.6 10x3/uL (1.5-8.4); %Basophils 0.5 % (0.0-2.0); %Eosinophils 3.7 % (0.0-6.0); %Neutrophils 73.4 % (40.0-75.0); Hematocrit 21.8 % (38.8-50.0); Hemoglobin 6.9 g/dL (13.5-17.5); Mean Corpuscular HGB CONC 31.7 g/dL (32.0-36.0); Mean Corpuscular Hemoglobin 25.7 pg (27.0-33.0); Mean Platelet Volume 10.7 fl (7.4-10.4); Platelet Count 420 10x3/uL (150-450); RBC Distribution Width 16.9 % (11.5-14.5); Red Blood Cell (RBC) Count 2.69 10x6/uL (4.32-5.72); White Blood Cell (WBC) Count 11.7 10x3/uL (3.5-10.5)
[2023-06-28] MEDS ORDERED: Vancomycin 1.5 GM in Sodium Chloride 0.9% 250 ML 300 ML IVPB SCH (09:00)
[2023-06-28] MEDS: Vancomycin 1.5 GRAM/300 ML BAG 1.5 GM in Premix 1 BAG IVPB SCH (09:00)
[2023-06-28] MEDS: Piperacillin/Tazobactam 3.375 GM in Sodium Chloride 0.9% 100 ML IVPB SCH ×2 (09:57→13:11)
[2023-06-28] MEDS: Morphine 2 MG/ML VIAL SLOW IVP PRN (11:30)
[2023-06-28] MEDS: Vancomycin 1 GM in Sodium Chloride 0.9% 250 ML 250 ML IVPB SCH (22:14)
[2023-06-29] MEDS: Piperacillin/Tazobactam 3.375 GM in Sodium Chloride 0.9% 100 ML IVPB SCH (09:16)
[2023-06-29 21:07] LABS: Vancomycin, Trough 16.5 ug/mL
[2023-06-30 08:37] LABS: #Basophils 0.1 10x3/uL (0.0-0.2); #Eosinphils 0.6 10x3/uL (0.0-0.5); #Monocytes 1.3 10x3/uL (0.0-1.1); #Neutrophils 11.1 10x3/uL (1.5-8.4); %Basophils 0.6 % (0.0-2.0); %Lymphocytes 6.2 % (18.0-47.0); %Monocytes 9.4 % (0.0-10.0); %Neutrophils 79.2 % (40.0-75.0); Hematocrit 24.3 % (38.8-50.0); Hemoglobin 7.6 g/dL (13.5-17.5); Mean Corpuscular HGB CONC 31.3 g/dL (32.0-36.0); Mean Corpuscular Hemoglobin 25.7 pg (27.0-33.0); Mean Corpuscular Volume 82.1 fl (81.2-95.1); Mean Platelet Volume 11.3 fl (7.4-10.4); Platelet Count 392 10x3/uL (150-450); RBC Distribution Width 16.9 % (11.5-14.5); Red Blood Cell (RBC) Count 2.96 10x6/uL (4.32-5.72); White Blood Cell (WBC) Count 14.1 10x3/uL (3.5-10.5)
[2023-06-30 08:55] LABS: Anion Gap 15 mmol/L (10-20); BUN (Urea Nitrogen) 15 mg/dL (8.4-25.7); Calc. Creatinine Clearance 73 mL/min (70-130); Calcium 9.3 mg/dL (7.8-10.44); Carbon Dioxide 25 mmol/L (23-31); Chloride 106 mmol/L (98-107); Estimated GFR 67; Glucose 124 mg/dL (83-110); Potassium 4.1 mmol/L (3.5-5.1); Sodium 142 mmol/L (136-145)
[2023-06-30] MEDS: QUEtiapine 25 MG TAB PO SCH (22:02)
[2023-07-01 08:31] LABS: Vancomycin, Trough 13.9 ug/mL
[2023-07-01] MEDS: Linezolid 600 MG TAB PO SCH (09:32)
[2023-07-01] MEDS: Lorazepam 0.5 MG TAB PO PRN (11:07)
[2023-07-01] MEDS: Ketorolac Tromethamine 30 MG (1 mL) VIAL IVP SCH (12:41)
[2023-07-01] MEDS: diphenhydrAMINE 25 MG CAP PO SCH (18:39)
[2023-07-07] MEDS: Polyethylene Glycol 3350 17 GM Packet PO PRN (10:32)
[2023-07-07] MEDS: traMADol HCl 50 MG TAB PO PRN (10:41)
[2023-07-07 12:48] VITALS: BP 146/64; TEMP 98.4
== END 2023-07-07 12:44 | DRG 475 ==
LOC: CSHTELE 06-25 09:55 → EDSTATUS 06-25 13:30 → CSHTELE 06-25 17:33
PROVIDERS: ADMIT Surgery; ATTEND Surgery
PROC: 0Y6J0Z1 Detachment at Left Lower Leg, High, Open Approach (ICD-10-PCS; principal; 2023-06-25)
PROC: 2W3RXYZ Immobilization of Left Lower Leg using Other Device (ICD-10-PCS; 2023-06-25)
DX: T87.81 Dehiscence of amputation stump (principal); D62 Acute posthemorrhagic anemia; R44.2 Other hallucinations; Z66 Do not resuscitate; I50.9 Heart failure, unspecified; E11.9 Type 2 diabetes mellitus without complications; J44.9 Chronic obstructive pulmonary disease, unspecified; I25.10 Atherosclerotic heart disease of native coronary artery without angina pectoris; R29.6 Repeated falls; I73.9 Peripheral vascular disease, unspecified; G89.18 Other acute postprocedural pain; G47.33 Obstructive sleep apnea (adult) (pediatric); R41.82 Altered mental status, unspecified; I48.0 Paroxysmal atrial fibrillation; F17.210 Nicotine dependence, cigarettes, uncomplicated
CPT/HCPCS: 36415; 36416; 71045; 80048; 80202; 83735; 84100; 85025; J1100; J1170; J1650; J1885; J2060; J2250; J2270; J2272; J2371; J2405; J2543; J3010; J3370; J3490; J7050; J7611

== ENCOUNTER 2023-09-14 | Outpatient (CLI) | payer OTHER, MEDICAID | END 2023-09-14 09:08 | disposition home or self-care (01) | DX: E11.621 Type 2 diabetes mellitus with foot ulcer (principal); L97.511 Non-pressure chronic ulcer of other part of right foot limited to breakdown of skin; L97.411 Non-pressure chronic ulcer of right heel and midfoot limited to breakdown of skin; E11.22 Type 2 diabetes mellitus with diabetic chronic kidney disease; N18.30 Chronic kidney disease, stage 3 unspecified; F19.10 Other psychoactive substance abuse, uncomplicated; E11.59 Type 2 diabetes mellitus with other circulatory complications ==

== ENCOUNTER 2023-12-30 12:55 | Outpatient (CLI) | payer OTHER, MEDICAID | END 2023-12-30 12:56 | disposition home or self-care (01) | LOC: CSHRAD 12:55 | PROVIDERS: ATTEND Student in an Organized Health Care Education/Training Program | DX: I70.203 Unspecified atherosclerosis of native arteries of extremities, bilateral legs (principal); Z89.512 Acquired absence of left leg below knee | CPT/HCPCS: 75635; 82565 ==

== ENCOUNTER 2024-07-18 14:46 | Emergency (ER) | payer MEDICARE, OTHER ==
[2024-07-18 15:45] LABS: #Basophils 0.04 10x3/uL (0.0-0.2); #Eosinophils 0.15 10x3/uL (0.0-0.5); #Monocytes 0.64 10x3/uL (0.0-1.1); #Neutrophils 15.18 10x3/uL (1.5-8.4); %Basophils 0.2 % (0.0-2.0); %Eosinophils 0.9 % (0.0-6.0); %Lymphocytes 2.2 % (18.0-47.0); %Monocytes 3.9 % (0.0-10.0); %Neutrophils 92.4 % (40.0-75.0); Hematocrit 44.1 % (38.8-50.0); Hemoglobin 13.9 g/dL (13.5-17.5); Mean Corpuscular HGB CONC 31.5 g/dL (32.0-36.0); Mean Corpuscular Hemoglobin 24.9 pg (27.0-33.0); Mean Corpuscular Volume 78.9 fL (81.2-95.1); Platelet Count 345 10x3/uL (150-450); RBC Distribution Width 18.1 % (11.5-14.5); Red Blood Cell (RBC) Count 5.59 10x6/uL (4.32-5.72); White Blood Cell (WBC) Count 16.45 10x3/uL (3.5-10.5)
[2024-07-18 16:11] LABS: INR-International Normal Ratio 1.1; PTT 23.7 sec (22.0-33.0); Prothrombin Time 11.8 sec (9.5-12.1)
[2024-07-18 16:12] LABS: ALT (SGPT) 16 U/L (8-55); AST (SGOT) 24 U/L (5-34); Albumin 4.2 g/dL (3.4-4.8); Alkaline Phosphatase 73 U/L (40-110); Anion Gap 18 mmol/L (10-20); BUN (Urea Nitrogen) 25 mg/dL (8.4-25.7); Bilirubin, Total 0.7 mg/dL (0.2-1.2); Calc. Creatinine Clearance 0 mL/min (70-130); Calcium 9.7 mg/dL (7.8-10.44); Carbon Dioxide 21 mmol/L (23-31); Chloride 100 mmol/L (98-107); Estimated GFR 28; Globulin 3.5 g/dL (2.4-3.5); Glucose 221 mg/dL (83-110); Lipase 18 U/L (8-78); Potassium 4.9 mmol/L (3.5-5.1); Protein, Total 7.7 g/dL (5.8-8.1); Sodium 134 mmol/L (136-145)
[2024-07-18 16:18] LABS: Troponin I 0.039 ng/mL (< 0.028)
[2024-07-18 16:31] LABS: Bilirubin Neg (Negative); Blood, Urine Negative (Negative); Clarity Clear (Clear); Glucose, Urine (Dipstick) Normal (Negative); Ketone, Urine Negative (Negative); Leukocyte 25 (Negative); Nitrite Negative (Negative); Protein, Urine (Dipstick) 30 mg/dl (Neg-Trace); Specific Gravity, Urine 1.015 (1.005-1.030); Urobilinogen Normal mg/dL (Less than 2)
[2024-07-18] MEDS ORDERED: Cefepime 2 GM VIAL ONE (16:42)
[2024-07-18 16:44] LABS: Bacteria/HPF Rare-Few HPF (None Seen); CAUTI Indications for Culture Alt mental st,lethar; Mucous/LPF Rare LPF (<2+); RBC/HPF 0-3 HPF (0-3); Squamous Epithelial None Seen HPF (0-3)
[2024-07-18 16:45] LABS: Urine Culture Reflex No No
[2024-07-18] MEDS ORDERED: VANCOMYCIN 1.75 GM/350 ML BAG 1.75 GM in Premix 1 BAG IVPB SCH (16:45)
[2024-07-18] MEDS ORDERED: OLANZapine 10 MG VIAL IM SCH (17:15)
[2024-07-18] MEDS ORDERED: Sterile Water 10 ML VIAL FS SCH (17:15)
[2024-07-18 17:22] LABS: Analyzer IN Cardio CS ER; Base Excess -3.6 mEq/L (-2 - +2); Calcium, Ionized (venous) 1.15 mmol/L (1.16-1.32); Chloride (VBG) 100 mmol/L (98-106); Hematocrit-VBG 41 % (42.0-52.0); Puncture Site Other Site; RapidComm Collect By RN; Sodium 140 mmol/L (133-146); pH (venous) 7.305 (7.32-7.43)
[2024-07-18 17:53] LABS: ALT (SGPT) 15 U/L (8-55); AST (SGOT) 23 U/L (5-34); Albumin 3.8 g/dL (3.4-4.8); Alkaline Phosphatase 65 U/L (40-110); Anion Gap 16 mmol/L (10-20); BUN (Urea Nitrogen) 26 mg/dL (8.4-25.7); Bilirubin, Total 0.6 mg/dL (0.2-1.2); Calc. Creatinine Clearance 0 mL/min (70-130); Calcium 9.4 mg/dL (7.8-10.44); Carbon Dioxide 23 mmol/L (23-31); Chloride 101 mmol/L (98-107); Estimated GFR 27; Globulin 3.6 g/dL (2.4-3.5); Glucose 186 mg/dL (83-110); Potassium 4.7 mmol/L (3.5-5.1); Protein, Total 7.4 g/dL (5.8-8.1); Sodium 135 mmol/L (136-145)
[2024-07-18] MEDS ORDERED: Enoxaparin 30 MG (0.3 mL) SYRINGE ONE (18:17)
[2024-07-18] MEDS ORDERED: Enoxaparin 60 MG (0.6 mL) SYRINGE ONE (18:17)
[2024-07-18] MEDS ORDERED: Aspirin 325 MG TAB ONE (18:18)
[2024-07-18] MEDS ORDERED: Lorazepam 2 MG/ML VIAL ONE (19:06)
[2024-07-18 19:24] LABS: Amphetamine Not Detected (NotDetected); Barbiturates Screen Not Detected (NotDetected); Benzodiazepine Screen Not Detected (NotDetected); Cocaine Metabolite Screen Not Detected (NotDetected); Methadone Not Detected (NotDetected); Methamphetamine Not Detected (NotDetected); Opiate Screen Not Detected (NotDetected); Oxycodone Screen Not Detected (NotDetected); Phencyclidine (PCP) Not Detected (NotDetected); THC/Cannabinoid Screen Not Detected (NotDetected); Tricyclic Screen Not Detected (NotDetected)
[2024-07-21 13:06] LABS: Digoxin 0.92 ng/mL (0.8-2.0)
== END 2024-07-18 19:30 | disposition short-term general hospital (02) ==
LOC: CSHERS 14:46
DX: A41.9 Sepsis, unspecified organism (principal); R65.21 Severe sepsis with septic shock; N17.9 Acute kidney failure, unspecified; R07.9 Chest pain, unspecified; I11.0 Hypertensive heart disease with heart failure; I50.9 Heart failure, unspecified; E11.22 Type 2 diabetes mellitus with diabetic chronic kidney disease; J44.9 Chronic obstructive pulmonary disease, unspecified; F17.210 Nicotine dependence, cigarettes, uncomplicated; E78.00 Pure hypercholesterolemia, unspecified; Z79.4 Long term (current) use of insulin; Z79.899 Other long term (current) drug therapy; Z95.0 Presence of cardiac pacemaker
CPT/HCPCS: 70450; 71045; 74176; 80053 ×2; 80162; 80306; 81001; 82805; 83605; 83690; 84484; 85025; 85610; 85730; 87040; 87086; 87400 ×2; 93005; 94760; J0692; J1650 ×2; J2060; J3370; 36415; 51701; 96361; 96365; 96367; 96372; 96375

== ENCOUNTER 2024-12-28 09:14 | Outpatient (CLI) | payer MEDICARE, MEDICAID | END 2024-12-28 09:15 | disposition home or self-care (01) | LOC: CSHSLEEP 09:14 | PROVIDERS: ATTEND Internal Medicine | DX: G47.33 Obstructive sleep apnea (adult) (pediatric) (principal); R41.89 Other symptoms and signs involving cognitive functions and awareness; F32.A Depression, unspecified; F41.9 Anxiety disorder, unspecified; E11.9 Type 2 diabetes mellitus without complications; K21.9 Gastro-esophageal reflux disease without esophagitis; E66.9 Obesity, unspecified; R35.1 Nocturia; J44.9 Chronic obstructive pulmonary disease, unspecified; I11.0 Hypertensive heart disease with heart failure; I50.9 Heart failure, unspecified; I25.10 Atherosclerotic heart disease of native coronary artery without angina pectoris; I25.2 Old myocardial infarction; G25.89 Other specified extrapyramidal and movement disorders | CPT/HCPCS: 95810 ==